=== PATIENT | male | born 1965 | race Caucasian/White ===

== ENCOUNTER 2023-10-15 19:03 | Outpatient (RCR) | payer OTHER, SELFPAY | END 2023-10-15 23:59 | disposition home or self-care (01) | LOC: RPT 19:03 | PROVIDERS: ATTENDING PHYSICIAN Family Medicine; PRIMARYCARE PHYSICIAN Physician Assistant Medical | DX: S76.312D Strain of muscle, fascia and tendon of the posterior muscle group at thigh level, left thigh, subsequent encounter (principal); Z73.6 Limitation of activities due to disability | CPT/HCPCS: 97110; 97112; 97140 ==

== ENCOUNTER 2024-05-29 08:59 | Outpatient (RCR) | payer OTHER, SELFPAY | END 2024-05-29 23:59 | disposition home or self-care (01) | LOC: ROT 08:59 | PROVIDERS: ATTENDING PHYSICIAN Orthopaedic Surgery; FAMILY PHYSICIAN Physician Assistant Medical | DX: M77.01 Medial epicondylitis, right elbow (principal); Z73.6 Limitation of activities due to disability | CPT/HCPCS: 97166; 97535 ==

== ENCOUNTER 2024-06-26 12:28 | Outpatient (RCR) | payer OTHER, SELFPAY | END 2024-06-26 23:59 | disposition home or self-care (01) | LOC: ROT 12:28 | PROVIDERS: ATTENDING PHYSICIAN Orthopaedic Surgery; FAMILY PHYSICIAN Physician Assistant Medical | DX: M77.01 Medial epicondylitis, right elbow (principal); Z73.6 Limitation of activities due to disability | CPT/HCPCS: 97010; 97035; 97110; 97140 ==

== ENCOUNTER → 2025-08-19 14:42 | Outpatient (REF) | payer OTHER, SELFPAY | LOC: RAD 14:42 | PROVIDERS: ATTENDING PHYSICIAN Nurse Practitioner Family; FAMILY PHYSICIAN Physician Assistant Medical | DX: S91.331A Puncture wound without foreign body, right foot, initial encounter (principal) | CPT/HCPCS: 73630 ==

== ENCOUNTER 2025-09-02 06:13 | Day surgery (SDC) | payer OTHER, SELFPAY ==
[2025-09-02 13:44] VITALS: BMI 32.1
[2025-09-02 13:45] VITALS: BP 127/84
[2025-09-02] MEDS: CELEBREX 200 MG PO (13:52)
[2025-09-02] MEDS: TYLENOL 1000 MG PO (13:52)
[2025-09-02 13:53] LABS: Hematocrit 43.5 % (39.0-52.0); Hemoglobin 15.2 g/dL (13.0-18.0); Mean Corp Hgb Conc. 34.9 g/dL (33.0-37.0); Mean Corpuscular Volume 87.3 fL (80.0-94.0); Platelet Count 170 10^3/uL (130-400); Red Cell Dist. Width 13.2 % (11.5-14.5)
[2025-09-02] MEDS: NORMOSOL-R/PLASMALYTE-A 1000 IV (13:53)
[2025-09-02 14:18] LABS: Blood Urea Nitrogen 20 mg/dl (9-20); Calcium 9.4 mg/dl (8.4-10.2); Carbon Dioxide 26 mmol/L (22-30); Chloride 103 mmol/L (98-107); Estimated Creatinine Clearance 121 ml/min; Glucose 117 mg/dl (70-99); Potassium 3.5 mmol/L (3.5-5.1); Sodium 135 mmol/L (135-145); eGFR > 60.00
[2025-09-02 17:48] VITALS: BP 110/80; BP_SYST 10
[2025-09-02 18:03] VITALS: BP 104/74; BP_SYST 12
[2025-09-02 18:10] VITALS: BP 110/79
[2025-09-02 18:30] VITALS: BP 108/81
--- NOTE | 2025-09-03 21:30 | OR.RPT ---
Operative Report
Operative Report
OPERATIVE REPORT
Patient Name: Tommy Motley

Date of Surgery: 09/02/2025
Surgeon: Yonatan Loyola DPM
Assistants: Yonatan Morales DPM
Preoperative Diagnosis:
Right foot deep retained foreign body (glass fragment)
Postoperative Diagnosis:
Same as preoperative
Procedure Performed:
Removal of deep foreign body, right foot (CPT 67045)
Anesthesia: MAC with 10ccs of 0.5% bupivacaine plain
Hemostasis: Pneumatic ankle tourniquet inflated to 250 mmHg which remained inflated for the entirety of the procedure
Estimated Blood Loss: Minimal (<5 mL)
Materials Used: None
Specimens: None
Complications: None
Condition: Stable to PACU
Indications for Surgery:
The patient presented with pain and localized tenderness to the right foot following a glass injury. Imaging confirmed the presence of a retained deep foreign body consistent with a glass fragment. Given the depth and location of the fragment and
unsuccessful removal attempts in the clinic, surgical extraction under fluoroscopic guidance was recommended and consented.
Description of Procedure:
After proper identification of the patient and surgical site, the patient was brought to the operating room and placed in the supine position. The right lower extremity was prepped and draped in the usual sterile fashion. A pneumatic ankle
tourniquet was applied and inflated after limb exsanguination.
Under fluoroscopic guidance, the retained foreign body was localized within the soft tissue of the plantar forefoot at the location of the 2nd metatarsophalangeal joint of the right foot. A small stab incision approximately 1.5 cms in length was
made directly over the site of the foreign body. Sharp and blunt dissection was carefully carried through the subcutaneous tissues to the level of the foreign body.
Fluoroscopy confirmed the position of the glass fragment, which was then visualized and grasped using a hemostat. The glass fragment was removed in its entirety without fragmentation. The wound and surrounding tissue were thoroughly irrigated with
copious sterile saline. There were no signs of infection, purulence, or devitalized tissue noted at the operative site. Final fluoroscopic images confirmed complete removal of the foreign body.
The incision was closed with a single interrupted 3-0 Prolene suture, and a sterile dressing was applied. The tourniquet was deflated with prompt hyperemic response to all digits.
Postoperative Plan:
Weightbearing as tolerated in a postoperative shoe
Keep dressing clean, dry, and intact
He will be on a short course of antibiotics post-operatively
Monitor for redness, drainage, or other signs of infection
Follow-up in 10�14 days for suture removal and wound check
== END 2025-09-02 18:53 | disposition home or self-care (01) ==
LOC: SDS 06:13
PROVIDERS: ATTENDING PHYSICIAN Student in an Organized Health Care Education/Training Program
DX: S90.851A Superficial foreign body, right foot, initial encounter (principal); W45.8XXA Other foreign body or object entering through skin, initial encounter
CPT/HCPCS: 28192; 80048; 85027